=== PATIENT | female | born 1960 | race Caucasian/White ===

== ENCOUNTER → 2019-09-28 | Outpatient (CLI) | payer OTHER ==
--- NOTE | 2019-09-28 15:31 | Diagnostic Imaging Report ---
EXAMINATION: PET/CT. INDICATION: Ovarian cancer. EXAMINATION: After intravenous administration of 15.36 mCi of [id number] injected into the right hand, a series of overlapping emission and transmission PET images was obtained. In the coronal, transaxial and sagittal planes, the area imaged extended from the skull base through the upper thighs. Height: 5' 4". Weight: 290 pounds. Blood glucose: 105. COMPARISON: There are no prior PET/CT examinations or cross-sectional imaging studies available for comparison. By history, the patient does have a diagnosis of ovarian carcinoma. She did undergo a hysterectomy on 08/06/2019. Whether the ovaries were also removed is not known to me. FINDINGS: There is a poorly defined roughly 2.0 x 4.8 cm area of increased hypermetabolic activity low in the pelvis just to the right of midline. This area has a maximum SUV value of 5.6 and consequently is worrisome for residual/recurrent neoplasm. This could also be a sequela of the patient's recent surgery. There is no hypermetabolic activity involving the cervical stump itself and there is no other hypermetabolic activity evident within the pelvis. The CT images do show a fairly well-defined 3.0 x 4.7 cm oval area of diminished density in the left adnexa. This could represent a cyst or perhaps a seroma related to the prior surgery. This area is not hypermetabolic. There is no other hypermetabolic activity identified to indicate malignancy; however, the CT images do show that there is a sizable 3.3 x 4.5 cm solid nodule arising from the right lobe of the thyroid. The maximum SUV associated with this nodule is 3.3. This may represent a benign process but ultrasound would be recommended to better characterize this finding. There is also a 1.5 x 1.7 cm nodule associated with the left adrenal gland. The maximum SUV associated with this nodule is only 2.3 and I suspect that this is a benign adrenal adenoma. The CT images failed to show any sign of an acute abnormality. IMPRESSION: 1. There is a poorly defined hypermetabolic density low in the pelvis on the right. Whether this area of abnormal activity is related to residual/recurrent neoplasm or sequela of the patient's recent surgical procedure is not certain. A short-term (three-month) follow-up CT abdomen/pelvis exam would be recommended for further study. 2. There is no other hypermetabolic activity seen to suggest the presence of malignancy. Even so, ultrasound would be recommended to better characterize the large nodule associated with the right lobe of the thyroid. 3. The small oval area of low density in the left pelvis could be related to a seroma or perhaps a cyst. 4. The small left adrenal nodule is not hypermetabolic. Dictated by: Dictated on workstation # [id number]
== END ==
LOC: RAD 09:51
PROVIDERS: ATTEND Internal Medicine Hematology & Oncology
DX: E27.8 Other specified disorders of adrenal gland (principal); E04.1 Nontoxic single thyroid nodule; N94.89 Other specified conditions associated with female genital organs and menstrual cycle; Z78.0 Asymptomatic menopausal state
CPT/HCPCS: 78815; A9552

== ENCOUNTER → 2019-12-21 | Outpatient (CLI) | payer OTHER ==
--- NOTE | 2019-12-21 16:11 | Diagnostic Imaging Report ---
EXAM: PET/CT INDICATION: Endometrial carcinoma TECHNIQUE: PET/CT imaging was obtained from the base of the skull through the pelvis after the administration of 14.63 mCi of [id number] injected into the right forearm. Limited CT imaging was utilized for localization and attenuation correction purposes. The low energy CT utilized for attenuation correction is not considered to be of high enough spatial resolution to allow in and of itself a separate anatomical analysis. Height 5' 4" Weight 275 Blood glucose level 108 The previous PET/CT exam performed on 09/28/2019 noted a 2.0 x 4.8 cm area of increased hypermetabolic activity low in the pelvis just to the right of midline. This had a maximum SUV of 5.6 and was worrisome for residual/recurrent neoplasm related to the patient's diagnosis of endometrial carcinoma. On this exam that finding has diminished in size and hypermetabolic activity. This area now measures only 1.0 x 3.7 cm and has a maximum SUV of 1.9. The prior exam also noted a fairly well-defined 3.0 x 4.7 cm oval area of diminished density in the left adnexa. This lesion was not hypermetabolic. That finding has diminished in size as well and now measures 1.9 x 3.0 cm. This area remains non-hypermetabolic. There is no other hypermetabolic activity to suggest the presence of malignancy. The 3.3 x 4.5 cm nodule arising from the right lobe of the thyroid seen previously is again evident. The maximum SUV in this area is 3.4 which is similar to the prior study. Ultrasound would be recommended to better characterize this finding. The 1.5 x 1.7 cm nodule associated with the left adrenal gland seen previously is also again evident and stable in size. This has a maximum SUV of 1.9 and most likely represents a benign process such as an adrenal adenoma. There is no other hypermetabolic activity to suggest malignancy. Physiologic activity is seen in the brain, the kidneys, the bowel and the bladder. There is increased hyper metabolic activity throughout a number of the thoracic and lumbar vertebrae. These SUV values range from 2.4, 3.9. I suspect these are more likely due to degenerative disease than to neoplastic disease. IMPRESSION: 1. The appearance of the PET/CT exam has improved since the prior exam as the poorly defined hypermetabolic area in the low pelvis on the right has decreased in size and intensity. 2. There is no other hypermetabolic activity seen to suggest the presence of malignancy. 3. The right lobe of the thyroid remains enlarged and has a heterogeneous appearance. While this area is not highly hypermetabolic, ultrasound would be recommended to better characterize this finding. Dictated by: Dictated on workstation # [id number]
== END ==
LOC: RAD 12-14 09:45
PROVIDERS: ATTEND Internal Medicine Hematology & Oncology
DX: C54.1 Malignant neoplasm of endometrium (principal); E04.9 Nontoxic goiter, unspecified
CPT/HCPCS: 78815; A9552